=== PATIENT | male | born 1945 | race Caucasian/White ===

== ENCOUNTER 2016-09-16 07:15 | Outpatient (CLI) | payer MEDICARE, OTHER | END 2016-09-16 07:16 | disposition home or self-care (01) | DX: I50.9 Heart failure, unspecified (principal) ==

== ENCOUNTER 2016-11-01 13:16 | Outpatient (CLI) | payer MEDICARE, OTHER | END 2016-11-01 13:17 | disposition home or self-care (01) | DX: G47.33 Obstructive sleep apnea (adult) (pediatric) (principal) | CPT/HCPCS: 99214; G0463 ==

== ENCOUNTER 2016-12-09 07:16 | Outpatient (CLI) | payer MEDICARE, OTHER ==
[2016-12-09 13:43] LABS: BASOPHILS # (AUTO) 0.1 10^3/uL (0.0-0.1); BASOPHILS % (AUTO) 0.7 %; EOSINOPHILS # (AUTO) 0.1 10^3/uL (0.0-0.7); HCT - HEMATOCRIT 41.2 % (42.0-52.0); HGB - HEMOGLOBIN 13.9 g/dL (14.0-18.0); LYMPHOCYTES # (AUTO) 1.6 10^3/uL (1.5-3.5); LYMPHOCYTES % (AUTO) 20.2 %; MEAN CORPUSCULAR HEMOGLOBIN 32.1 pg (27.0-31.0); MEAN CORPUSCULAR HGB CONC 33.7 g/dL (32.0-36.0); MEAN CORPUSCULAR VOLUME 95.3 fL (80.0-94.0); MEAN PLATELET VOLUME 11.9 fL (7.4-11.4); MONOCYTES # (AUTO) 0.5 10^3/uL (0.0-1.0); MONOCYTES % (AUTO) 5.9 %; NEUTROPHILS # (AUTO) 5.9 10^3/uL (1.5-6.6); NEUTROPHILS % (AUTO) 72.2 %; RED BLOOD COUNT 4.32 10^6/uL (4.70-6.10); RED CELL DISTRIBUTION WIDTH 15.8 % (12.0-15.0); UNCORRECTED WHITE BLOOD COUNT 8.1 x10^3/uL; WHITE BLOOD COUNT 8.1 x10^3/uL (4.8-10.8)
[2016-12-09 14:06] LABS: CHOL/HDL RATIO 3.3 (<5.0); CHOLESTEROL 92 mg/dL; HDL CHOLESTEROL 28 mg/dL; LDL/HDL RATIO 1.8 (<3.6); TRIGLYCERIDES 66 mg/dL; VLDL CHOLESTEROL 13 mg/dL
[2016-12-09 14:19] LABS: HEMOGLOBIN A1C 0.65 g/dL
== END 2016-12-09 07:17 | disposition home or self-care (01) ==
LOC: LAB.WCP 07:16
PROVIDERS: ATTEND Family Medicine
DX: I50.9 Heart failure, unspecified (principal); E11.9 Type 2 diabetes mellitus without complications; Z12.5 Encounter for screening for malignant neoplasm of prostate; N18.9 Chronic kidney disease, unspecified; I48.91 Unspecified atrial fibrillation; I12.9 Hypertensive chronic kidney disease with stage 1 through stage 4 chronic kidney disease, or unspecified chronic kidney disease; E78.5 Hyperlipidemia, unspecified
CPT/HCPCS: 36415; 80061; 82043; 83036; 84443; 85025; G0103; 84153

== ENCOUNTER 2016-12-17 14:49 | Outpatient (CLI) | payer MEDICARE, OTHER ==
--- NOTE | 2016-12-19 08:20 | Ultrasound Report ---
BILATERAL LOWER EXTREMITY ARTERIAL DUPLEX: 12/17/2016 CLINICAL INDICATION: Peripheral vascular disease, claudication. TECHNIQUE: Real-time sonographic vascular imaging was performed by the pinsetter mechanic automatic through the lower extremities utilizing both color-flow and Doppler spectral analysis. Multiple sales development representative static images were saved for review. RIGHT SIDE SITE PSV WAVEFORM STEN NATALIE -- -- -- MAO -- -- -- FIDENCIO -- -- -- LITTLE -- -- -- EIA -- -- -- NUCLEAR RADIOLOGIST 86 Tri -- PSFA 75 Tri -- MSFA 75 Tri -- DSFA 58 Tri -- PFA 59 Tri -- POP 40 Tri -- JANNETH 51 Tri -- HORSE BREEDER 82 Tri -- PER 67 Tri -- DPA 45 Tri -- LEFT SIDE SITE PSV WAVEFORM STEN LITTLE -- -- -- EIA -- -- -- NUCLEAR RADIOLOGIST 78 Tri -- PSFA 63 Tri -- MSFA 69 Tri -- DSFA 42 Tri -- PFA 49 Tri -- POP 41 Tri -- JANNETH 62 Tri -- HORSE BREEDER 87 Tri -- PER 73 Tri -- DPA 62 Tri -- FINDINGS: RIGHT LEG: Waveforms are diffusely triphasic. There is no evidence of a focal hemodynamically significant stenosis. LEFT LEG: Waveforms are diffusely triphasic. There is no evidence of a focal hemodynamically significant stenosis. IMPRESSION: NORMAL BILATERAL LOWER EXTREMITY ARTERIAL DUPLEX. MTDD
== END 2016-12-17 14:50 | disposition home or self-care (01) ==
LOC: DI 14:49
PROVIDERS: ATTEND Family Medicine
DX: I73.9 Peripheral vascular disease, unspecified (principal)
CPT/HCPCS: 93925

== ENCOUNTER 2017-01-31 12:19 | Outpatient (CLI) | payer MEDICARE, OTHER ==
--- NOTE | 2017-01-31 13:14 | XRAY Report ---
TWO-VIEW CHEST: 01/31/2017 CLINICAL INDICATION: Pneumonia, right lower lobe rhonchi, fevers. COMPARISON: CT 11/23/2013. FINDINGS: Frontal and lateral views of the chest demonstrate a normal cardiac silhouette. There is a new right lower lobe infiltrate present, with trace right effusion. No pneumothorax. The left neema g is clear. IMPRESSION: NEW RIGHT LOWER LOBE INFILTRATE WITH TRACE RIGHT EFFUSION. :9 JOB #: [id number] EXT JOB #:[id number]
== END 2017-01-31 12:20 | disposition home or self-care (01) ==
LOC: DI 12:19
PROVIDERS: ATTEND Family Medicine
DX: J18.9 Pneumonia, unspecified organism (principal)
CPT/HCPCS: 71020

== ENCOUNTER → 2017-03-09 | Outpatient (CLI) | payer MEDICARE, OTHER ==
[2017-03-09 12:54] LABS: CALCIUM 9.5 mg/dL (8.5-10.3); CREATININE 1.3 mg/dL (0.6-1.2); POTASSIUM 5.2 mmol/L (3.5-5.0)
[2017-03-09 13:09] LABS: HEMOGLOBIN A1C 0.54 g/dL
== END ==
LOC: LAB.WCP 08:00
PROVIDERS: ATTEND Family Medicine
DX: E11.9 Type 2 diabetes mellitus without complications (principal); I50.9 Heart failure, unspecified; N18.9 Chronic kidney disease, unspecified; I48.91 Unspecified atrial fibrillation
CPT/HCPCS: 36415; 80048; 83036

== ENCOUNTER 2017-03-15 09:17 | Outpatient (CLI) | payer MEDICARE, OTHER | END 2017-03-15 09:18 | disposition home or self-care (01) | LOC: LAB.WCP 09:17 | PROVIDERS: ATTEND Family Medicine | DX: E87.5 Hyperkalemia (principal) | CPT/HCPCS: 36415; 84132 ==

== ENCOUNTER 2017-11-01 10:07 | Outpatient (CLI) | payer MEDICARE, OTHER | END 2017-11-01 10:08 | disposition home or self-care (01) | LOC: SC 10:07 | PROVIDERS: ATTEND Nurse Practitioner Family | DX: G47.33 Obstructive sleep apnea (adult) (pediatric) (principal) | CPT/HCPCS: 99214; G0463; 99212 ==

== ENCOUNTER 2018-01-24 07:18 | Outpatient (CLI) | payer MEDICARE, OTHER ==
[2018-01-24 13:22] LABS: ALBUMIN 3.7 g/dL (3.2-5.5); ALBUMIN/GLOBULIN RATIO 1.1 (1.0-2.2); ALKALINE PHOSPHATASE 58 IU/L (42-121); ALT ALANINE AMINOTRANSFERASE 28 IU/L (10-60); AST ASPARTATE AMINOTRANSFERASE 26 IU/L (10-42); BILIRUBIN,TOTAL 1.3 mg/dL (0.2-1.0); BUN - BLOOD UREA NITROGEN 24 mg/dL (6-20); CALCIUM 9.2 mg/dL (8.5-10.3); CARBON DIOXIDE - CO2 29 mmol/L (21-32); CHLORIDE 101 mmol/L (101-111); CHOLESTEROL 104 mg/dL; CREATININE 1.3 mg/dL (0.6-1.2); GFR - MDRD 54 (>89); GLUCOSE 106 mg/dL (70-100); HDL CHOLESTEROL 35 mg/dL; LDL CHOLESTEROL,CALCULATED 57 mg/dL; LDL/HDL RATIO 1.6 (<3.6); SODIUM 138 mmol/L (135-145); TOTAL PROTEIN 7.1 g/dL (6.7-8.2); VLDL CHOLESTEROL 12 mg/dL
[2018-01-24 13:32] LABS: HB2 TOTAL 15.2 g/dL; HEMOGLOBIN A1C 0.54 g/dL; HEMOGLOBIN A1C % 5.4 % (4.6-6.2)
== END 2018-01-24 07:19 | disposition home or self-care (01) ==
LOC: LAB.WCP 07:18
PROVIDERS: ATTEND Family Medicine
DX: Z79.899 Other long term (current) drug therapy (principal); E11.22 Type 2 diabetes mellitus with diabetic chronic kidney disease; I13.0 Hypertensive heart and chronic kidney disease with heart failure and stage 1 through stage 4 chronic kidney disease, or unspecified chronic kidney disease; N18.9 Chronic kidney disease, unspecified; I50.9 Heart failure, unspecified; I48.91 Unspecified atrial fibrillation; E78.9 Disorder of lipoprotein metabolism, unspecified
CPT/HCPCS: 36415; 80053; 80061; 82043; 83036; 83721

== ENCOUNTER 2018-03-16 13:23 | Emergency (ER) | payer MEDICARE, OTHER ==
--- NOTE | 2018-03-16 13:41 | ED Physician Documentation ---
PD HPI HEAD INJURY - Stated complaint Stated Complaint: GLF/FACE LAC - Chief complaint Chief Complaint: Trauma Hd/Nk - History obtained from History obtained from: Patient - History of Present Illness Mechanism of head injury: Fell (waling back down steeper incline of ground, fell forward and landed onto face and hands. Pain at nose, abrasions of face and brief epistaxis. Has feeling of FB at nose laceration. No dental injury. Did not have LOC. No headache nor confusion.) Timing - onset: Last night Location of injury: Front Associated symptoms: No: LOC, AMS, Nausea / vomiting, Neck pain, Paresthesias Symptoms worsen with: Palpation (of nose) Contributing factors: Anticoagulated (for chronic atrial fib). No: Intoxicated Similar symptoms before: Has not had sx before Recently seen: Not recently seen Review of Systems Constitutional: denies: Fever, Chills Eyes: denies: Loss of vision, Decreased vision, Photophobia Nose: reports: Congestion (chronic), Epistaxis Throat: denies: Dental pain / toothache, Oral lesions / sores Cardiac: denies: Chest pain / pressure, Palpitations Respiratory: denies: Dyspnea, Cough GI: denies: Abdominal Pain, Nausea, Vomiting Musculoskeletal: denies: Neck pain, Back pain Neurologic: denies: Focal weakness, Numbness, Altered mental status, Headache, Head injury PD PAST MEDICAL HISTORY - Past Medical History Cardiovascular: Hypertension Respiratory: None Endocrine/Autoimmune: Type 2 diabetes GI: GERD : None HEENT: None Psych: Claustrophobia Musculoskeletal: Osteoarthritis, Gout Derm: None - Past Surgical History General: Colonoscopy, EGD HEENT: Cataracts Derm: Other - Present Medications Home Medications: Ambulatory Orders Medication Instructions Recorded Confirmed Allopurinol [Zyloprim] 300 mg PO DAILY 05/29/13 05/29/13 Aspirin 81 mg PO 05/29/13 05/29/13 Atenolol 50 mg PO QDAC 05/29/13 05/29/13 Felodipine [Felodipine ER] 10 mg PO 05/29/13 05/29/13 Flaxseed Oil [Flax Oil] 1,000 mg PO 05/29/13 05/29/13 Lisinopril 40 mg PO 05/29/13 05/29/13 Metformin HCl [Fortamet] 500 mg PO DAILY 05/29/13 05/29/13 Multivitamin [Multivitamins] 1 ORAL DAILY 05/29/13 05/29/13 [place]-3 Fatty Acids [Fish Oil] 300 mg PO 05/29/13 05/29/13 Famotidine [Pepcid] 20 mg PO ONCE 09/17/13 09/17/13 Simvastatin [Zocor] 40 mg PO DAILY 09/17/13 09/17/13 - Allergies Allergies/Adverse Reactions: Allergies Allergy/AdvReac Type Severity Reaction Status Date / Time amoxicillin [Amoxicillin] Allergy Intermediate Nausea Verified 09/18/13 07:33 acetaminophen [From Vicodin] AdvReac Mild Nausea Verified 05/30/13 08:53 hydrocodone bitartrate * AdvReac Mild Nausea Verified 05/30/13 08:54 [From Vicodin] PD ED PE NORMAL - Vitals Vital signs reviewed: Yes - General General: Alert and oriented X 3, No acute distress, Well developed/nourished - HEENT HEENT: PERRL, EOMI, Pharynx benign, Dentition benign, Other (laceration on bridge of nose. dried blood in nares. No septal hematoma. There is small gravel piece in nose laceration, removed with forceps. Abrasions of forehead, upper lip , cheek, chin. ) - Neck Neck: Supple, no meningeal sign, No adenopathy - Cardiac Cardiac: RRR, No murmur - Respiratory Respiratory: Clear bilaterally - Abdomen Abdomen: Soft, Non tender - Back Back: No CVA TTP - Derm Derm: Normal color, Warm and dry, No rash - Extremities Extremities: No deformity, No tenderness to palpate, Normal ROM s pain, No edema , No calf tenderness / cord - Neuro Neuro: Alert and oriented X 3, No motor deficit, Normal speech Eye Opening: Spontaneous Motor: Obeys Commands Verbal: Oriented GCS Score: 15 Results - Vitals Vitals: Vital Signs - 24 hr 03/16/18 03/16/18 03/16/18 13:32 14:30 15:23 Temperature 36.3 C L 36.6 C Heart Rate 77 65 79 Respiratory 20 14 18 Rate Blood Pressure 111/73 142/64 H 138/85 H O2 Saturation 97 99 98 Oxygen O2 Source Room air - Rads (name of study) head CT Radiology: Prelim report reviewed (no ICH) facial CT Radiology: Prelim report reviewed (nasal fracture, depressed slightly. ) Procedures - Laceration (location) bridge of nose Length in cm: 1 Wound type: Linear, Into subcut fat, Contaminated (with single piece of gravel rock 1/2 cm size) Anesthesia: LET, Lidocaine 1% Wound Preparation: Irrigated copiously NS, FB identified, FB removed Skin layer closure: Nylon, Interrupted, Size #-0 - enter number (5), Sutures - enter # (5) Other: Patient tolerated well, No complications, Dressing applied, Tetanus UTD Complexity: Simple PD MEDICAL DECISION MAKING - ED course Complexity details: reviewed results, considered differential, d/w patient - Sepsis Event Vital Signs: Vital Signs - 24 hr 03/16/18 03/16/18 03/16/18 13:32 14:30 15:23 Temperature 36.3 C L 36.6 C Heart Rate 77 65 79 Respiratory 20 14 18 Rate Blood Pressure 111/73 142/64 H 138/85 H O2 Saturation 97 99 98 Oxygen O2 Source Room air Departure - Departure Disposition: 01 Home, Self Care Clinical Impression: Anticoagulant long-term use Laceration of nose Qualifiers: Encounter type: initial encounter Qualified Code(s): S01.21XA - Laceration without foreign body of nose, initial encounter Facial abrasion Qualifiers: Encounter type: initial encounter Qualified Code(s): S00.81XA - Abrasion of other part of head, initial encounter Nasal fracture Qualifiers: Encounter type: initial encounter Fracture type: closed Qualified Code(s): S02.2XXA - Fracture of nasal bones, initial encounter for closed fracture Condition: Stable Record reviewed to determine appropriate education?: Yes Instructions: ED Fx Nasal Conf W X Ray, ED Laceration Facial Sutr Tape Follow-Up: Bhavik Hernandez MD [Primary Care Provider] - Comments: It is okay to wash and shower. Clean off the wound twice a day with soap and water, or peroxide and water. Apply some antibiotic ointment to it to keep it moist. Also to watch for signs of infection such as purulence, redness or increasing pain. Return to your primary care or the ER at the specified time for suture removal. Suture removal 7 or 8 days. Tylenol if needed for pains. See how your nose looks and how your breathing is after a week or so when the swelling goes down. Follow-up with your primary care or ENT if problems related to the broken nose. It does not look significantly displaced on imaging and should heal up okay without repair per se. Discharge Date/Time: 03/16/18 15:26
[2018-03-16] MEDS ORDERED: LIDOCAINE-EPINEPH-TETRACAINE 3 ML SYRINGE TOP STA (13:55)
[2018-03-16] MEDS ORDERED: ACETAMINOPHEN 325 MG TABLET PO STA (13:56)
--- NOTE | 2018-03-16 14:23 | CT Report ---
Procedure Date: 03/16/2018 Accession Number: [id number] / [id number] Procedure: CT - Head W/O CPT Code: FULL RESULT: EXAM: CT HEAD EXAM DATE: 03/16/2018 02:10 PM. CLINICAL HISTORY: Fell last night, struck head and face; on Xarelto. Pain. COMPARISON: None. TECHNIQUE: Multiaxial CT images were obtained from the foramen magnum to the vertex. Reformats: Coronal. IV contrast: None. In accordance with CT protocol optimization, one or more of the following dose reduction techniques were utilized for this exam: automated exposure control, adjustment of mA and/or KV based on patient size, or use of iterative reconstructive technique. FINDINGS: Parenchyma: No intraparenchymal hemorrhage. No evidence of mass, midline shift, or CT findings of acute infarction. Howell-white differentiation is distinct. Diffuse chronic microangiopathic white matter changes are evident. Extraaxial Spaces: Normal for age. No subdural or epidural collections identified. Ventricles: The ventricles and cortical sulci are enlarged, consistent with age-related tissue loss. Sinuses and orbits: Imaged paranasal sinuses, orbits, and mastoids show no significant abnormality. Bones: No evidence of fracture or calvarial defect. Other: Mild right forehead edema. IMPRESSION: Generalized age-related cortical atrophic changes without evidence of acute intracranial abnormality. RADIA
--- NOTE | 2018-03-16 14:31 | CT Report ---
Procedure Date: 03/16/2018 Accession Number: [id number] / [id number] Procedure: CT - Facial Bones W/O CPT Code: FULL RESULT: EXAM: CT MAXILLOFACIAL WITHOUT CONTRAST EXAM DATE: 03/16/2018 02:10 PM. CLINICAL HISTORY: Fell last night; struck face/nose. Pain. On Xarelto. COMPARISONS: None. TECHNIQUE: Thin-section axial images were acquired of the face without contrast. Post-processing: Coronal and sagittal reformats. Other: None. In accordance with CT protocol optimization, one or more of the following dose reduction techniques were utilized for this exam: automated exposure control, adjustment of mA and/or KV based on patient size, or use of iterative reconstructive technique. FINDINGS: Soft Tissue: Mild uniform edema right forehead. Mild edema over the nose. Orbits: Symmetric and unremarkable. Bones: Bilateral nasal tip fractures, slightly angulated towards the left. Both styloid processes are very large in caliber and very long, right greater than left. There is central fragmentation or articulation left styloid process. There are two areas of fragmentation and/or articulations in the right styloid process. No adjacent edema. Temporomandibular Joints: The temporomandibular joints are symmetric and normally located. Sinuses: Normal. No mucosal thickening or fluid levels. Other: None. IMPRESSION: 1. Bilateral slightly displaced/depressed nasal tip fractures. 2. 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 Fragmentation and/or articulations involving such. Appearance favors remote injury rather than acute. Correlate with any posttraumatic symptoms in this region. RADIA
[2018-03-16 15:24] VITALS: BP 138/85
== END 2018-03-16 15:26 | disposition home or self-care (01) ==
LOC: ED 13:23
DX: S01.21XA Laceration without foreign body of nose, initial encounter (principal); S02.2XXA Fracture of nasal bones, initial encounter for closed fracture; W18.30XA Fall on same level, unspecified, initial encounter; I10 Essential (primary) hypertension; E11.9 Type 2 diabetes mellitus without complications; Z79.84 Long term (current) use of oral hypoglycemic drugs; Z79.01 Long term (current) use of anticoagulants; Z79.82 Long term (current) use of aspirin
CPT/HCPCS: 12011; 70450; 70486; 99282; 99284; A9270

== ENCOUNTER 2018-09-06 08:01 | Outpatient (CLI) | payer MEDICARE, OTHER ==
[2018-09-06 12:07] LABS: BASOPHILS # (AUTO) 0.1 10^3/uL (0.0-0.1); BASOPHILS % (AUTO) 0.6 %; EOSINOPHILS # (AUTO) 0.1 10^3/uL (0.0-0.7); EOSINOPHILS % (AUTO) 1.1 %; HGB - HEMOGLOBIN 13.7 g/dL (14.0-18.0); LYMPHOCYTES # (AUTO) 1.3 10^3/uL (1.5-3.5); LYMPHOCYTES % (AUTO) 15.5 %; MEAN CORPUSCULAR HEMOGLOBIN 32.2 pg (27.0-31.0); MEAN CORPUSCULAR HGB CONC 33.4 g/dL (32.0-36.0); MEAN CORPUSCULAR VOLUME 96.5 fL (80.0-94.0); MEAN PLATELET VOLUME 11.5 fL (7.4-11.4); MONOCYTES # (AUTO) 0.6 10^3/uL (0.0-1.0); MONOCYTES % (AUTO) 7.5 %; NEUTROPHILS # (AUTO) 6.1 10^3/uL (1.5-6.6); NEUTROPHILS % (AUTO) 75.3 %; PLT - PLATELET COUNT 140 10^3/uL (130-450); RED BLOOD COUNT 4.25 10^6/uL (4.70-6.10); RED CELL DISTRIBUTION WIDTH 15.7 % (12.0-15.0); WHITE BLOOD COUNT 8.1 x10^3/uL (4.8-10.8)
[2018-09-06 12:33] LABS: ALBUMIN 3.7 g/dL (3.2-5.5); ALBUMIN/GLOBULIN RATIO 1.1 (1.0-2.2); ALKALINE PHOSPHATASE 61 IU/L (42-121); ALT ALANINE AMINOTRANSFERASE 30 IU/L (10-60); AST ASPARTATE AMINOTRANSFERASE 28 IU/L (10-42); BILIRUBIN,TOTAL 1.1 mg/dL (0.2-1.0); BUN - BLOOD UREA NITROGEN 32 mg/dL (6-20); CALCIUM 8.9 mg/dL (8.5-10.3); CARBON DIOXIDE - CO2 29 mmol/L (21-32); CHLORIDE 103 mmol/L (101-111); CHOL/HDL RATIO 3.2 (<5.0); CHOLESTEROL 114 mg/dL; CREATININE 1.3 mg/dL (0.6-1.2); GFR - MDRD 54 (>89); GLUCOSE 113 mg/dL (70-100); HDL CHOLESTEROL 36 mg/dL; LDL CHOLESTEROL,CALCULATED 66 mg/dL; LDL/HDL RATIO 1.8 (<3.6); SODIUM 141 mmol/L (135-145); VLDL CHOLESTEROL 12 mg/dL
[2018-09-06 12:48] LABS: HB2 TOTAL 14.5 g/dL; HEMOGLOBIN A1C 0.52 g/dL; HEMOGLOBIN A1C % 5.4 % (4.6-6.2)
== END 2018-09-06 08:02 | disposition home or self-care (01) ==
LOC: LAB.WCP 08:01
PROVIDERS: ATTEND Family Medicine
DX: E11.22 Type 2 diabetes mellitus with diabetic chronic kidney disease (principal); I12.9 Hypertensive chronic kidney disease with stage 1 through stage 4 chronic kidney disease, or unspecified chronic kidney disease; N18.9 Chronic kidney disease, unspecified; E78.5 Hyperlipidemia, unspecified; I48.91 Unspecified atrial fibrillation
CPT/HCPCS: 36415; 80053; 80061; 83036; 83721; 84443; 85025

== ENCOUNTER 2018-10-06 09:45 | Outpatient (CLI) | payer MEDICARE, OTHER ==
--- NOTE | 2018-10-06 11:24 | XRAY Report ---
Reason: WRIST PAIN Procedure Date: 10/06/2018 Accession Number: [id number] / [id number] Procedure: WCP - Wrist 3 View RT CPT Code: FULL RESULT: EXAM: RIGHT WRIST RADIOGRAPHY EXAM DATE: 10/06/2018 10:10 AM. CLINICAL HISTORY: Wrist pain. COMPARISON: None. TECHNIQUE: 3 views. FINDINGS: Bones: The bones are qualitatively osteopenic; this limits evaluation for underlying fractures or masses. Within these limitations no definite fracture is identified. There is a sclerotic line in the distal radius coursing from the lateral aspect towards the articular surface. Joints: Some degenerative changes are seen at the first carpometacarpal interface. No definite subluxation. Soft Tissues: Mild soft tissue swelling near the distal radius. IMPRESSION: Osteopenia and degenerative changes with no definite fracture or dislocation identified. Sclerotic line in the distal radius near an area of focal soft tissue swelling. If there is focal tenderness in this area, a chronic or subacute nondisplaced fracture of the distal radius is possible. RADIA
== END 2018-10-06 09:46 | disposition home or self-care (01) ==
LOC: DI.WCP 09:45
PROVIDERS: ATTEND Family Medicine
DX: M18.11 Unilateral primary osteoarthritis of first carpometacarpal joint, right hand (principal); M85.88 Other specified disorders of bone density and structure, other site

== ENCOUNTER 2019-01-15 08:00 | Outpatient (CLI) | payer MEDICARE, OTHER | END 2019-01-15 23:59 | LOC: LAB.R 08:00 | PROVIDERS: ATTEND Family Medicine | DX: L03.115 Cellulitis of right lower limb (principal) | CPT/HCPCS: 87070; 87075; 87077; 87184; 87205 ==

== ENCOUNTER 2019-01-30 08:16 | Outpatient (CLI) | payer MEDICARE, OTHER | END 2019-01-30 08:17 | disposition home or self-care (01) | LOC: SC 08:16 | PROVIDERS: ATTEND Nurse Practitioner Family | DX: G47.33 Obstructive sleep apnea (adult) (pediatric) (principal); I95.9 Hypotension, unspecified | CPT/HCPCS: 99214; G0463; 99212 ==

== ENCOUNTER 2019-02-28 07:12 | Outpatient (CLI) | payer MEDICARE, OTHER ==
[2019-02-28 13:19] LABS: CALCIUM 9.4 mg/dL (8.5-10.3); CREATININE 1.5 mg/dL (0.6-1.2)
== END 2019-02-28 07:13 | disposition home or self-care (01) ==
LOC: LAB.WCP 07:12
PROVIDERS: ATTEND Physician Assistant Medical
DX: E87.5 Hyperkalemia (principal)
CPT/HCPCS: 36415; 80048

== ENCOUNTER 2020-02-13 08:37 | Outpatient (CLI) | payer MEDICARE, OTHER ==
[2020-02-13 09:32] VITALS: BP 148/80
--- NOTE | 2020-02-13 09:32 | SLEEP CARE CONSULTATION ---
Information from patient questionnaire entered by Rosalie Gaspar. I have reviewed and concur with the information entered by Rosalie Gaspar. This document represents the service I personally performed and the decisions made by me, Erin Del Angel, RN, MSN, HEAVY EQUIPMENT TECHNICIAN. History of Present Illness Service Date and Time: 02/13/2020 0837 Previous diagnosis: Severe, Obstructive Sleep Apnea-Hypopnea Syndrome AHI: 31.4 (in 2013) Reason for follow up: annual (last seen 2019) Equipment type: CPAP Equipment obtained from: [employer] (getting supplies as needed with this transfer) Mask style: Full face Backup mask available: Yes (old mask as well as one with travel CPAP) Last cushion change: 2 weeks ago Prior sleep studies: Yes Year and Where: 2013 - [facility] Type of Sleep Study: Polysomnography CPAP Compliance Data - Data Reviewed with Patient Average duration of nightly device use: 7.95 Compliance rate %: 100 (180 days) Current pressure setting (cmH2O): 12 Humidity settin Heated hose settin Average residual AHI: 2.5 Average large leak: 1 min 11 sec Subjective Patient concerns: reports: mask discomfort (occasional redness on bridge of nose), dry mouth, nose, throat (occasional mild dry mouth 2 times a week. ). denies: aerophagia, air blowing in eyes, mask leak noise, condensation in mask/hose (but perspires around mask with warmer weather. He has a fan in room. Skin dryness resolves with use of lotion. ), nasal congestion, epistaxis Observed to snore while using device: No Current pressure setting perceived as: comfortable On therapy, patient: reports: sleeping better, awakening more refreshed, being more awake and alert during the day, more rested overall. denies: drowsiness while driving Initial [place] Sleepiness Scale score: 1 (in 2013) Allergies and Home Medications Known drug allergies: Yes (see list) Home medication list reviewed: No (lisinopril divided to 20 bid and furosemide is now every other day ) Review of Systems Review of systems same as previous: No (some changes in kidney function and follow up planned) Physical Exam Blood Pressure: 148/80 Cuff size: long Heart Rate: 84 O2 Saturation: 96 Height: 5 ft 11 in Weight: 235 lb 9.6 oz Body Mass Index: 32.8 BMI Classification: Obese Impression and Plan 1. Obstructive Sleep Apnea-Hypopnea Syndrome, severe, with good treatment compliance and good apnea control. On CPAP therapy, the patient has better sleep quality and is more rested overall. If redness on bridge of nose persists than he is advised to protect the bridge of nose with bandaid and decide if mask refitting needed. He is already cleaning mask daily to reduce mask leaks when sleeps on his side. Additionally, mask leaks predominately from when patient sleeps on their side can be reduced by using a CPAP pillow which he uses and has reduced mask leaks but not completely. Oral dryness can be reduced by adjusting humidity setting higher. Patient advised that chronic oral dryness can affect dental health and advised to follow up with dentist. He has tried oral products from dentist but reduced some. He takes a drink of water instead using the oral dryness product. Patient has gained weight. Currently patients BMI is 32.8 obesity class . Obesity increases the risk of apnea, CPAP pressure requirements and overall health risks especially cardiovascular and diabetes. Thus patient is advised to lose weight. Weight loss can be done with reducing portion size, reducing refined foods and balancing content with vegetables, fruit and protein. In addition tracking food intake will allow awareness of how to modify diet to achieve weight loss goals. Also eating more slowly will allow more awareness of food intake and enjoyment of food while assisting patient to modify intake at each meal. A diet consultation can be helpful in achieving optimal weight loss goals. The BMI chart was reviewed. The patient would like to reduce 10-20 pounds bringing their BMI down to about . Patient encouraged to discuss their weight loss goals with their PCP and consider a referral to a coach. The patient's CPAP pressure range should accommodate some weight loss. Symptoms to report for additional pressure adjustment discussed. Patient's apnea severity and rationale for treatment to reduce apnea, improve sleep quality and reduce cardiovascular and cerebrovascular events was reviewed. I also reviewed the benefit of consistent device use of CPAP for hypertension, cardiac disease, arrhythmia, diabetes. Since patient has more severe apnea in supine position, patient advised to avoid supine sleep with pillow positioning if unable to use CPAP while ill or if without electricity as well as raise his head of bed 30-40 degrees to reduce apnea risk. * Continue CPAP pressure at 12 cmH2O * Implement methods to reduce mask irritation, oral dryness. * Notify me if snoring with mask or feeling that the pressure is too much or too little * Attempt to lose weight * Call this office if any problems using CPAP * Return for follow up in 1 year , or sooner if concerns arise Visit Type: In Office Time Spent with Patient (minutes): 30 Provider Statement: I spent 100% of the Face to Face Visit with the patient with greater than 50% spent counseling the patient and coordination of care.
== END 2020-02-13 08:38 | disposition home or self-care (01) ==
LOC: SC 08:37
PROVIDERS: ATTEND Nurse Practitioner Family
DX: G47.33 Obstructive sleep apnea (adult) (pediatric) (principal); E66.9 Obesity, unspecified; Z68.32 Body mass index [BMI] 32.0-32.9, adult
CPT/HCPCS: 99214; G0463; 99212

== ENCOUNTER 2020-06-06 06:25 | Day surgery (SDC) | payer MEDICARE, OTHER ==
[2020-06-06] MEDS ORDERED: LACTATED RINGERS 1,000 ML IV ONE ×2 (07:10→08:10)
[2020-06-06] MEDS ORDERED: MIDAZOLAM 2 MG/2 ML VIAL IVP ONE (08:10)
[2020-06-06] MEDS ORDERED: fentaNYL 250 MCG/5 ML VIAL IVP ONE (08:10)
[2020-06-06 08:21] VITALS: BP 119/65
== END 2020-06-06 06:26 | disposition home or self-care (01) ==
LOC: SDS 06:25
PROVIDERS: ATTEND Surgery
PROC: 0DJD8ZZ Inspection of Lower Intestinal Tract, Via Natural or Artificial Opening Endoscopic (ICD-10-PCS; principal; 2020-06-06 07:30)
DX: Z12.11 Encounter for screening for malignant neoplasm of colon (principal); Z86.010 Personal history of colon polyps; K57.30 Diverticulosis of large intestine without perforation or abscess without bleeding; I13.0 Hypertensive heart and chronic kidney disease with heart failure and stage 1 through stage 4 chronic kidney disease, or unspecified chronic kidney disease; I50.9 Heart failure, unspecified; N18.9 Chronic kidney disease, unspecified; I48.91 Unspecified atrial fibrillation; J44.9 Chronic obstructive pulmonary disease, unspecified; I73.9 Peripheral vascular disease, unspecified; N40.0 Benign prostatic hyperplasia without lower urinary tract symptoms; G47.30 Sleep apnea, unspecified; M51.36 Other intervertebral disc degeneration, lumbar region; Z79.51 Long term (current) use of inhaled steroids; Z79.899 Other long term (current) drug therapy
CPT/HCPCS: G0105; J3010; J7120

== ENCOUNTER 2021-01-01 07:27 | Emergency (ER) | payer MEDICARE, OTHER ==
[2021-01-01 07:44] VITALS: BP 157/86
[2021-01-01] MEDS ORDERED: BACITRACIN ZINC OINT 1 PACKET TOP STA (07:49)
[2021-01-01] MEDS ORDERED: TRANEXAMIC ACID 1,000 MG/10 ML VIAL NAS STA (07:49)
[2021-01-01] MEDS ORDERED: TETANUS/DIPHTHERIA/PERTUSSIS 0.5 ML SYRINGE IM ONE (07:53)
--- NOTE | 2021-01-01 09:25 | ED Physician Documentation ---
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 It has been bleeding since that time and was bleeding steadily this morning. He is on xarelto Review of Systems Skin: reports: Other (avulsion) PD PAST MEDICAL HISTORY - Past Medical History Past Medical History: Yes Cardiovascular: Hypertension, Atrial fibrillation Respiratory: Asthma, COPD, Sleep apnea, CPAP use Endocrine/Autoimmune: Type 2 diabetes GI: GERD : None HEENT: None Psych: Claustrophobia Musculoskeletal: Osteoarthritis, Gout Derm: None - Past Surgical History Past Surgical History: Yes General: Colonoscopy, EGD HEENT: Cataracts Derm: Other - Present Medications Home Medications: Ambulatory Orders Medication Instructions Recorded Confirmed [place]-3 Fatty Acids [Fish Oil] 300 mg PO DAILY 05/29/13 01/01/21 allopurinoL [Zyloprim] 300 mg PO DAILY 05/29/13 01/01/21 lisinopriL [Lisinopril] 20 mg PO BID 05/29/13 01/01/21 Fluticasone/Salmeterol [Advair 1 each IH DAILY 06/05/20 01/01/21 100-50 Diskus] Omeprazole 40 mg PO DAILY 06/05/20 01/01/21 Rivaroxaban [Xarelto] 15 mg PO DAILY 06/05/20 01/01/21 Tiotropium [place] [Spiriva 4 gm IH BID 06/05/20 01/01/21 Respimat] Metoprolol Succinate 1 tab DAILY 06/06/20 01/01/21 cloNIDine [Catapres] 2 tab DAILY 06/06/20 01/01/21 dilTIAZem HCL [Diltiazem 24Hr ER 1 tab DAILY 06/06/20 01/01/21 (Xr)] Atorvastatin [Lipitor] 1 tab DAILY 01/01/21 01/01/21 - Allergies Allergies/Adverse Reactions: Allergies Allergy/AdvReac Type Severity Reaction Status Date / Time amoxicillin [Amoxicillin] Allergy Intermediate Nausea Verified 01/01/21 07:45 acetaminophen [From Vicodin] AdvReac Mild Nausea Verified 01/01/21 07:45 hydrocodone bitartrate * AdvReac Mild Nausea Verified 01/01/21 07:45 [From Vicodin] - Social History Does the pt smoke?: No Smoking Status: Never smoker Does the pt drink ETOH?: Yes Does the pt have substance abuse?: No - Immunizations Immunizations are current?: Yes - POLST Patient has POLST: No PD ED PE NORMAL - Vitals Vital signs reviewed: Yes - General General: Alert and oriented X 3, No acute distress, Well developed/nourished - HEENT HEENT: Atraumatic, PERRL, EOMI - Derm Derm: Normal color, Warm and dry, Other (1 cm avulsion to right anterior leg with small amount of blood, stopping after direct pressure and gauze soaked with TXA.) - Extremities Extremities: No deformity, Other (Ambulatory without difficulty. 2+ R DP pulse. normal sensation and movement s/p KASHIF wrap) Results - Vitals Vitals: Vital Signs - 24 hr 01/01/21 07:35 Temperature 36.2 C L Heart Rate 97 Respiratory 16 Rate Blood Pressure 157/86 H O2 Saturation 100 Oxygen O2 Source Room air PD MEDICAL DECISION MAKING - ED course ED course: 75-year-old man presented with bleeding avulsion that resolved after direct pressure, TXA soaked gauze, and Kashif wrap application.Return precautions given. He will follow up with his primary doctor. Departure - Departure Disposition: 01 Home, Self Care Clinical Impression: Avulsion, skin Condition: Good Instructions: ED Wound Care Comments: You are seen in the emergency department for avulsed skin that would not stop bleeding. We put tranexamic acid directly on the wound and direct pressure with a Kashif wrap. Return to the emergency department if it starts bleeding again and does not resolve after 15 minutes of direct steady pressure. Follow-up with your primary doctor.Monitor for signs of infection.
== END 2021-01-01 09:32 | disposition home or self-care (01) ==
LOC: ED 07:27
DX: S81.801A Unspecified open wound, right lower leg, initial encounter (principal); W22.8XXA Striking against or struck by other objects, initial encounter; I48.91 Unspecified atrial fibrillation; Z79.01 Long term (current) use of anticoagulants; E11.9 Type 2 diabetes mellitus without complications; Z23 Encounter for immunization
CPT/HCPCS: 90471; 90715; 99281; 99283; A9270

== ENCOUNTER 2021-02-03 13:46 | Outpatient (CLI) | payer MEDICARE, OTHER ==
--- NOTE | 2021-02-03 15:22 | XRAY Report ---
PROCEDURE: Chest 2 View X-Ray INDICATIONS: COPD TECHNIQUE: 2 view(s) of the chest. COMPARISON: None. FINDINGS: Surgical changes and devices: None. Lungs and pleura: No pleural effusions or pneumothorax. Lungs are mildly edematous. Mediastinum: Mediastinal contours are normal. Heart size is globally enlarged, to a mild degree. Bones and chest wall: No suspicious bony abnormalities. Soft tissues appear unremarkable. IMPRESSION: Mild chronic CHF pattern, no pneumonia seen. Reviewed by: Isaac Aguilar MD on 02/03/2021 3:20 PM PDT Approved by: Isaac Aguilar MD on 02/03/2021 3:20 PM PDT Station ID: [id number]
== END 2021-02-03 13:47 | disposition home or self-care (01) ==
LOC: DI.N 13:46
PROVIDERS: ATTEND Physician Assistant
DX: I50.9 Heart failure, unspecified (principal); J44.9 Chronic obstructive pulmonary disease, unspecified

== ENCOUNTER 2021-02-11 08:02 | Outpatient (CLI) | payer MEDICARE, OTHER ==
--- NOTE | 2021-02-11 09:04 | SLEEP CARE CONSULTATION ---
Information from patient questionnaire entered by Rosalie Gaspar. I have reviewed and concur with the information entered by Rosalie Gaspar. This document represents the service I personally performed and the decisions made by , Radha Andrade ARNP. History of Present Illness Service Date and Time: 02/11/2021 0802 Previous diagnosis: Severe, Obstructive Sleep Apnea-Hypopnea Syndrome AHI: 31.4 (in 2013) Reason for follow up: annual (last seen 01/2020) Equipment type: CPAP Equipment obtained from: [facility] (getting supplies as needed) Mask style: Full face Backup mask available: Yes (old mask) Last cushion change: 2 weeks ago Prior sleep studies: Yes Year and Where: 2013 - [facility] HPI additional information: MARIANN SINGER was diagnosed to have severe, AHI 31.4, obstructive sleep apnea-hypopnea syndrome and returned today for CPAP therapy annual follow-up. CPAP Compliance Data - Data Reviewed with Patient Average duration of nightly device use: 7 hr 58 min Compliance rate %: 96.1 (180 days) Current pressure setting (cmH2O): 12 Humidity settin Heated hose settin Average residual AHI: 1.1 Average large leak: 12 sec Subjective Missed days of use due to: reports: travel Patient concerns: denies: aerophagia, mask discomfort, air blowing in eyes, mask leak noise, condensation in mask/hose, nasal congestion, dry mouth, nose, throat, epistaxis, other Observed to snore while using device: No Current pressure setting perceived as: comfortable On therapy, patient: reports: sleeping better, awakening more refreshed, being more awake and alert during the day, more rested overall. denies: drowsiness while driving Initial Creole Sleepiness Scale score: 1 (in 2013) Current Creole Sleepiness Scale score: 5 Allergies and Home Medications Home medication list reviewed: Yes (stopped simvastatin; Atorvastatin started) Review of Systems Review of systems same as previous: Yes (no changes) Physical Exam Heart Rate: 93 O2 Saturation: 93 Height: 5 ft 11 in Weight: 227 lb Body Mass Index: 31.6 BMI Classification: Obese Impression and Plan 1. Obstructive Sleep Apnea-Hypopnea Syndrome, severe, with good treatment compliance and good apnea control. On CPAP therapy, the patient has better sleep quality and is more rested overall. Patient aware of the [employer] recall but has not yet registered his device. I encouraged him to still do this explained where he can find a link on the [employer] website. Patient is also eligible for an upgrade of his machine which was last set up in 2015. The patients CPAP is over 5 years old and of reasonable use. Thus, the CPAP will be updated. A DWO prescription will be made. Compliance guidelines for new device and follow up discussed. Patient voiced understanding and agreement with this plan of care. Patient's apnea severity and rationale for treatment to reduce apnea, improve sleep quality and reduce cardiovascular and cerebrovascular events was reviewed. I also reviewed the benefit of consistent device use of CPAP for hypertension, cardiac disease, arrhythmia, and diabetes. * Continue auto CPAP pressure at 12 cmH2O * Update machine * Notify me if snoring with mask or feeling that the pressure is too much or too little * Attempt to lose weight * Call this office if any problems using CPAP * Return for follow up one month after obtaining new device, or sooner if concerns arise Counseling Topics: Spare mask, Weight loss health impact Visit Type: In Office Time Spent with Patient (minutes): 20 Provider Statement: I spent 100% of the Face to Face Visit with the patient with greater than 50% spent counseling the patient and coordination of care.
== END 2021-02-11 08:03 | disposition home or self-care (01) ==
LOC: SC 08:02
PROVIDERS: ATTEND Nurse Practitioner Family
DX: G47.33 Obstructive sleep apnea (adult) (pediatric) (principal); E66.9 Obesity, unspecified; Z68.31 Body mass index [BMI] 31.0-31.9, adult
CPT/HCPCS: 99213; G0463; 99212

== ENCOUNTER 2021-02-12 10:17 | Outpatient (CLI) | payer MEDICARE, OTHER ==
--- NOTE | 2021-02-12 12:50 | XRAY Report ---
PROCEDURE: Lumbar Spine 2 View INDICATIONS: R LUMBAR RADICULOPATHY TECHNIQUE: 3 views of the lumbar spine were acquired. COMPARISON: None. FINDINGS: Bones: 5 [id number] vertebrae are present. There is mild grade 1 retrolisthesis of L3 on L4 and L4 on L5. Multilevel disc space narrowing and degenerative endplate changes are seen with prominent anterior osteophyte formation. Facet hypertrophy is seen throughout the lumbar spine. No vertebral blayne dy compression fractures. No suspicious bony lesions. Soft tissues: Overlying bowel gas pattern is normal. No suspicious soft tissue calcifications. Aor tic atherosclerotic calcifications are present. IMPRESSION: No acute osseous abnormality. Multilevel spondylosis. Reviewed by: Rocky Tariq MD on 02/12/2021 12:49 PM PDT Approved by: Rocky Tariq MD on 02/12/2021 12:49 PM PDT Station ID: [id number]
== END 2021-02-12 10:18 | disposition home or self-care (01) ==
LOC: DI.N 10:17
PROVIDERS: ATTEND Family Medicine
DX: M54.16 Radiculopathy, lumbar region (principal)

== ENCOUNTER 2021-05-22 08:29 | Outpatient (CLI) | payer MEDICARE, OTHER | END 2021-05-22 08:30 | disposition critical access hospital (66) | LOC: EMS 08:29 | DX: R40.4 Transient alteration of awareness (principal) | CPT/HCPCS: A0425; A0429 ==

== ENCOUNTER 2021-05-22 09:02 | Emergency (ER) | payer MEDICARE, OTHER ==
[2021-05-22 09:31] LABS: BASOPHILS # (AUTO) 0.1 10^3/uL (0.0-0.1); BASOPHILS % (AUTO) 0.5 %; EOSINOPHILS % (AUTO) 0.1 %; HCT - HEMATOCRIT 38.4 % (42.0-52.0); LYMPHOCYTES # (AUTO) 0.6 10^3/uL (1.5-3.5); LYMPHOCYTES % (AUTO) 4.7 %; MEAN CORPUSCULAR HEMOGLOBIN 30.7 pg (27.0-31.0); MEAN CORPUSCULAR HGB CONC 31.3 g/dL (32.0-36.0); MEAN CORPUSCULAR VOLUME 98.2 fL (80.0-94.0); MEAN PLATELET VOLUME 11.3 fL (7.4-11.4); MONOCYTES # (AUTO) 0.8 10^3/uL (0.0-1.0); MONOCYTES % (AUTO) 6.6 %; NEUTROPHILS # (AUTO) 10.8 10^3/uL (1.5-6.6); NEUTROPHILS % (AUTO) 87.5 %; PLT - PLATELET COUNT 223 10^3/uL (130-450); RED BLOOD COUNT 3.91 10^6/uL (4.70-6.10); RED CELL DISTRIBUTION WIDTH 14.7 % (12.0-15.0); WHITE BLOOD COUNT 12.4 x10^3/uL (4.8-10.8)
[2021-05-22] MEDS ORDERED: diltiaZEM INJ 5 MG/ML VIAL IVP STA ×2 (09:48→11:18)
[2021-05-22 09:51] LABS: ALBUMIN 3.4 g/dL (3.2-5.5); BILIRUBIN,TOTAL 1.7 mg/dL (0.2-1.0); CALCIUM 8.8 mg/dL (8.5-10.3); POTASSIUM 4.7 mmol/L (3.5-5.0); TOTAL PROTEIN 6.9 g/dL (6.7-8.2)
--- NOTE | 2021-05-22 09:51 | ED Physician Documentation ---
PD HPI SYNCOPE - Stated complaint Stated Complaint: ALOC - Chief complaint Chief Complaint: Neuro - History obtained from History obtained from: Patient, Family - History of Present Illness Witnessed: Witnessed Timing - onset: Today Duration: Seconds Preceding symptoms: Headache, Light headed Associated symptoms: Headache. No: Seizure Injury occurred: None Similar symptoms before: Has not had sx before Recently seen: Not recently seen - Additional information Additional information: 76-year-old male with a history of atrial fibrillation who is on Eliquis has had a near syncopal episode this morning while sitting at the breakfast table. He states he got for his usual morning routine felt normal and while sitting at his table he began to feel lightheaded.He has had URI last week and was examined by his physician. Patient feels that he has recovered from his viral URI Review of Systems Constitutional: denies: Fever Eyes: denies: Decreased vision Ears: denies: Ear pain Nose: reports: Rhinorrhea / runny nose, Congestion Throat: reports: Sore throat Cardiac: denies: Chest pain / pressure, Palpitations Respiratory: reports: Cough. denies: Dyspnea, Wheezing GI: denies: Abdominal Pain, Nausea, Vomiting, Constipation, Diarrhea : denies: Dysuria, Frequency Skin: denies: Rash Musculoskeletal: denies: Neck pain, Back pain, Extremity pain Neurologic: denies: Generalized weakness, Focal weakness, Numbness PD PAST MEDICAL HISTORY - Past Medical History Cardiovascular: Hypertension, Atrial fibrillation Respiratory: Asthma, COPD, Sleep apnea, CPAP use Endocrine/Autoimmune: Type 2 diabetes GI: GERD : None HEENT: None Psych: Claustrophobia Musculoskeletal: Osteoarthritis, Gout Derm: None - Past Surgical History Past Surgical History: Yes General: Colonoscopy, EGD HEENT: Cataracts Derm: Other - Present Medications Home Medications: Ambulatory Orders Medication Instructions Recorded Confirmed [place]-3 Fatty Acids [Fish Oil] 300 mg PO DAILY 05/29/13 01/01/21 allopurinoL [Zyloprim] 300 mg PO DAILY 05/29/13 01/01/21 lisinopriL [Lisinopril] 20 mg PO BID 05/29/13 01/01/21 Fluticasone/Salmeterol [Advair 1 each IH DAILY 06/05/20 01/01/21 100-50 Diskus] Omeprazole 40 mg PO DAILY 06/05/20 01/01/21 Rivaroxaban [Xarelto] 15 mg PO DAILY 06/05/20 01/01/21 Tiotropium [place] [Spiriva 4 gm IH BID 06/05/20 01/01/21 Respimat] Metoprolol Succinate 1 tab DAILY 06/06/20 01/01/21 cloNIDine [Catapres] 2 tab DAILY 06/06/20 01/01/21 dilTIAZem HCL [Diltiazem 24Hr ER 1 tab DAILY 06/06/20 01/01/21 (Xr)] Atorvastatin [Lipitor] 1 tab DAILY 01/01/21 01/01/21 - Allergies Allergies/Adverse Reactions: Allergies Allergy/AdvReac Type Severity Reaction Status Date / Time amoxicillin [Amoxicillin] Allergy Intermediate Nausea Verified 05/22/21 09:16 acetaminophen [From Vicodin] AdvReac Mild Nausea Verified 05/22/21 09:16 hydrocodone bitartrate * AdvReac Mild Nausea Verified 05/22/21 09:16 [From Vicodin] - Social History Does the pt smoke?: No Smoking Status: Never smoker Does the pt drink ETOH?: Yes Does the pt have substance abuse?: No - Immunizations Immunizations are current?: Yes - POLST Patient has POLST: No PD ED PE NORMAL - Vitals Vital signs reviewed: Yes (tachy and hypertensive ) - General General: Alert and oriented X 3, No acute distress, Well developed/nourished - HEENT HEENT: Atraumatic, PERRL, EOMI - Neck Neck: Supple, no meningeal sign, No bony TTP - Cardiac Cardiac: No murmur, Other (rapid irregular rate) - Respiratory Respiratory: No respiratory distress, Clear bilaterally - Abdomen Abdomen: Soft, Non tender - Back Back: No CVA TTP, No spinal TTP - Derm Derm: Normal color, Warm and dry, No rash - Extremities Extremities: No deformity, No edema - Neuro Neuro: Alert and oriented X 3, ct technician 2-12 intact, No motor deficit, No sensory deficit, Normal speech Eye Opening: Spontaneous Motor: Obeys Commands Verbal: Oriented GCS Score: 15 - Psych Psych: Normal mood, Normal affect Results - Vitals Vitals: Vital Signs - 24 hr 05/22/21 05/22/21 05/22/21 09:11 09:19 11:00 Temperature 36.4 C L 36.8 C Heart Rate 145 H 130 H 108 H Respiratory 18 34 H 30 H Rate Blood Pressure 109/83 H 109/83 H 113/72 O2 Saturation 96 100 94 05/22/21 12:02 Temperature 35.4 C L Heart Rate 87 Respiratory 19 Rate Blood Pressure 106/70 O2 Saturation 95 Oxygen O2 Source Room air - EKG (time done) 0909 Rate: Rate (enter#) (134) Rhythm: Atrial fibrillation QRS: Low voltage Ischemia: Normal ST segments Compare to prior EKG: Changed from prior EKG (SPT 06-24-14 the volatage has decreased) Computer interpretation: Agree with computer - Labs Labs: Laboratory Tests 05/22/21 05/22/21 05/22/21 09:26 09:26 09:26 WBC 12.4 H RBC 3.91 L Hgb 12.0 L Hct 38.4 L MCV 98.2 H MCH 30.7 MCHC 31.3 L RDW 14.7 Plt Count 223 MPV 11.3 Neut # (Auto) 10.8 H Lymph # (Auto) 0.6 L [place] # (Auto) 0.8 Eos # (Auto) 0.0 Baso # (Auto) 0.1 Absolute Nucleated RBC 0.00 Nucleated RBC % 0.0 Sodium 134 L Potassium 4.7 Chloride 97 L Carbon Dioxide 25 Anion Gap 12.0 BUN 34 H Creatinine 2.0 H Estimated GFR (MDRD) 33 L Glucose 150 H Calcium 8.8 Total Bilirubin 1.7 H AST 15 ALT 17 Alkaline Phosphatase 64 Troponin I High Sens 8.8 B-Natriuretic Peptide Total Protein 6.9 Albumin 3.4 Globulin 3.5 Albumin/Globulin Ratio 1.0 Lipase 25 05/22/21 09:26 WBC RBC Hgb Hct MCV MCH MCHC RDW Plt Count MPV Neut # (Auto) Lymph # (Auto) [place] # (Auto) Eos # (Auto) Baso # (Auto) Absolute Nucleated RBC Nucleated RBC % Sodium Potassium Chloride Carbon Dioxide Anion Gap BUN Creatinine Estimated GFR (MDRD) Glucose Calcium Total Bilirubin AST ALT Alkaline Phosphatase Troponin I High Sens B-Natriuretic Peptide 282 H Total Protein Albumin Globulin Albumin/Globulin Ratio Lipase - Rads (name of study) chest Radiology: Prelim report reviewed (Impression: Finding is suggestive of CHF. No gross pneumothorax. No definite focal infiltrate. ), EMP read indepedently, See rad report Procedures - IVC sono (time) 0945 Bedside IVC sono: IVC measures (cm) (1.57), Euvolemia PD MEDICAL DECISION MAKING - ED course Complexity details: considered differential, d/w patient ED course: 76-year-old male with a history of atrial fibrillation has rapid ventricular response and he is not tolerating this well. He had near syncope at home related to rapid rate. He is given diltiazem 20 mg intravenously followed by 25 mg dose is rate is now under 80. Patient feels entirely normal wants to go home. Departure - Departure Disposition: 01 Home, Self Care Clinical Impression: Atrial fibrillation with RVR Condition: Stable Instructions: ED Afib Follow-Up: Marcos Westbrook DO [Primary Care Provider] - Discharge Date/Time: 05/22/21 12:07
--- NOTE | 2021-05-22 10:10 | XRAY Report ---
PROCEDURE: Chest 1 View X-Ray INDICATIONS: chest pain TECHNIQUE: One view of the chest was acquired. COMPARISON: 02/03/2021 FINDINGS: Surgical changes and devices: None. Lungs and pleura: There is pulmonary vascular congestion. Small bilateral pleural effusion are seen w ith blunting of bilateral costophrenic angles. Mild pulmonary edema is also noted. No gross pneumotho rax. Mediastinum: Mediastinal contours appear normal. Heart size is markedly enlarged. Bones and chest wall: No suspicious bony lesions. Overlying soft tissues appear unremarkable. IMPRESSION: Finding is suggestive of CHF. No gross pneumothorax. No definite focal infiltrate. Reviewed by: Dom Peter MD on 05/22/2021 10:09 AM PDT Approved by: Dom Peter MD on 05/22/2021 10:09 AM PDT Station ID: [id number]
[2021-05-22 12:04] VITALS: BP 106/70
== END 2021-05-22 12:07 | disposition home or self-care (01) ==
LOC: EDUNIT# → ED 09:02
DX: I48.91 Unspecified atrial fibrillation (principal); Z79.01 Long term (current) use of anticoagulants; Z20.822 Contact with and (suspected) exposure to COVID-19
CPT/HCPCS: 36415; 71045; 80053; 83690; 83880; 84484; 85025; 93005; 96374; 96376; 99283; 99284; U0004

== ENCOUNTER 2021-05-29 17:29 | Emergency (ER) | payer MEDICARE, OTHER ==
[2021-05-29 18:26] LABS: BASOPHILS # (AUTO) 0.1 10^3/uL (0.0-0.1); BASOPHILS % (AUTO) 0.6 %; EOSINOPHILS % (AUTO) 0.3 %; HCT - HEMATOCRIT 39.2 % (42.0-52.0); HGB - HEMOGLOBIN 12.3 g/dL (14.0-18.0); LYMPHOCYTES # (AUTO) 0.9 10^3/uL (1.5-3.5); LYMPHOCYTES % (AUTO) 7.2 %; MEAN CORPUSCULAR HEMOGLOBIN 30.9 pg (27.0-31.0); MEAN CORPUSCULAR HGB CONC 31.4 g/dL (32.0-36.0); MEAN CORPUSCULAR VOLUME 98.5 fL (80.0-94.0); MEAN PLATELET VOLUME 10.5 fL (7.4-11.4); MONOCYTES # (AUTO) 0.7 10^3/uL (0.0-1.0); MONOCYTES % (AUTO) 5.5 %; NEUTROPHILS # (AUTO) 10.7 10^3/uL (1.5-6.6); NEUTROPHILS % (AUTO) 85.7 %; PLT - PLATELET COUNT 363 10^3/uL (130-450); RED BLOOD COUNT 3.98 10^6/uL (4.70-6.10); RED CELL DISTRIBUTION WIDTH 14.6 % (12.0-15.0); WHITE BLOOD COUNT 12.5 x10^3/uL (4.8-10.8)
[2021-05-29 18:43] LABS: ALBUMIN 3.5 g/dL (3.2-5.5); BILIRUBIN,TOTAL 0.9 mg/dL (0.2-1.0); CALCIUM 9.1 mg/dL (8.5-10.3); CREATININE 2.4 mg/dL (0.6-1.2); POTASSIUM 4.9 mmol/L (3.5-5.0); TOTAL PROTEIN 7.1 g/dL (6.7-8.2)
[2021-05-29] MEDS ORDERED: SODIUM CHLORIDE 0.9% 1,000 ML IV STA (18:47)
--- NOTE | 2021-05-29 19:08 | ED Physician Documentation ---
History of Present Illness - Stated complaint Stated Complaint: PER DR HIGH POTASSIUM - Chief complaint Chief Complaint: General - Additonal information Additional information: 76-year-old male was told to come to the emergency department by his primary care provider for evaluation of hyperkalemia. In screening labs obtained yesterday he was noted to have a potassium of 6.8. Patient was seen in this emergency department last week for syncope and he had labs obtained by his primary in follow-up of that. 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 Patient denies any acute medical complaints he would not be here with the exception of being told to come here by his primary. Denies chest pain or shortness of air. No leg swelling. No recent vomiting diarrhea or abdominal pain. Review of Systems Constitutional: reports: Reviewed and negative Ears: reports: Reviewed and negative Nose: reports: Reviewed and negative Throat: reports: Reviewed and negative Cardiac: reports: Reviewed and negative Respiratory: reports: Reviewed and negative GI: reports: Reviewed and negative : reports: Reviewed and negative Skin: reports: Reviewed and negative PD PAST MEDICAL HISTORY - Past Medical History Past Medical History: Yes Cardiovascular: Hypertension, Atrial fibrillation Respiratory: Asthma, COPD, Sleep apnea, CPAP use Endocrine/Autoimmune: Type 2 diabetes GI: GERD : None HEENT: None Psych: Claustrophobia Musculoskeletal: Osteoarthritis, Gout Derm: None - Past Surgical History Past Surgical History: Yes General: Colonoscopy, EGD HEENT: Cataracts Derm: Other - Present Medications Home Medications: Ambulatory Orders Medication Instructions Recorded Confirmed [place]-3 Fatty Acids [Fish Oil] 300 mg PO DAILY 05/29/13 01/01/21 allopurinoL [Zyloprim] 300 mg PO DAILY 05/29/13 01/01/21 lisinopriL [Lisinopril] 20 mg PO BID 05/29/13 01/01/21 Fluticasone/Salmeterol [Advair 1 each IH DAILY 06/05/20 01/01/21 100-50 Diskus] Rivaroxaban [Xarelto] 15 mg PO DAILY 06/05/20 01/01/21 Metoprolol Succinate 1 tab DAILY 06/06/20 01/01/21 cloNIDine [Catapres] 1 tab DAILY 06/06/20 01/01/21 Atorvastatin [Lipitor] 1 tab DAILY 01/01/21 01/01/21 Cimetidine 200 mg PO DAILY 05/29/21 05/29/21 Furosemide [Lasix] 20 mg DAILY 05/29/21 05/29/21 hydroCHLOROthiazide [Hydrodiuril] 25 mg DAILY 05/29/21 05/29/21 - Allergies Allergies/Adverse Reactions: Allergies Allergy/AdvReac Type Severity Reaction Status Date / Time amoxicillin [Amoxicillin] Allergy Intermediate Nausea Verified 05/29/21 17:46 acetaminophen [From Vicodin] AdvReac Mild Nausea Verified 05/29/21 17:46 hydrocodone bitartrate * AdvReac Mild Nausea Verified 05/29/21 17:46 [From Vicodin] - Social History Does the pt smoke?: No Smoking Status: Never smoker Does the pt drink ETOH?: Yes Does the pt have substance abuse?: No - Immunizations Immunizations are current?: Yes - POLST Patient has POLST: No PD ED PE NORMAL - General General: Alert and oriented X 3, No acute distress - HEENT HEENT: PERRL - Neck Neck: Supple, no meningeal sign - Cardiac Cardiac: RRR, No murmur - Respiratory Respiratory: Clear bilaterally - Abdomen Abdomen: Normal bowel sounds, Soft, Non tender, Non distended - Back Back: No CVA TTP, No spinal TTP Results - Vitals Vitals: Vital Signs - 24 hr 05/29/21 17:42 Temperature 36.4 C L Heart Rate 103 H Respiratory 18 Rate Blood Pressure 126/62 O2 Saturation 94 Oxygen O2 Source Room air - Labs Labs: Laboratory Tests 05/29/21 05/29/21 18:19 18:19 WBC 12.5 H RBC 3.98 L Hgb 12.3 L Hct 39.2 L MCV 98.5 H MCH 30.9 MCHC 31.4 L RDW 14.6 Plt Count 363 MPV 10.5 Neut # (Auto) 10.7 H Lymph # (Auto) 0.9 L [place] # (Auto) 0.7 Eos # (Auto) 0.0 Baso # (Auto) 0.1 Absolute Nucleated RBC 0.00 Nucleated RBC % 0.0 Sodium 140 Potassium 4.9 Chloride 101 Carbon Dioxide 30 Anion Gap 9.0 BUN 42 H Creatinine 2.4 H Estimated GFR (MDRD) 27 L Glucose 101 H Calcium 9.1 Total Bilirubin 0.9 AST 15 ALT 16 Alkaline Phosphatase 74 Total Protein 7.1 Albumin 3.5 Globulin 3.6 Albumin/Globulin Ratio 1.0 Lipase 32 PD MEDICAL DECISION MAKING - ED course Complexity details: reviewed results, re-evaluated patient, considered differential, d/w patient ED course: 76-year-old male presents emergency department for evaluation of reported hyperkalemia drawn on labs yesterday at an outside facility. Reassuringly today his potassium is noted to be 4.9. His EKG is consistent with his history of atrial fibrillation and shows no peaked T waves or QRS widening suggestive of hyperkalemia. We do note a mild increase in his BUN to 42 and his creatinine to 2.4. Patient was repleted with a liter of fluids today in the ER. I have advised close follow-up this week with his primary care doctor to discuss his chronic kidney disease. Emergent return precautions otherwise discussed. Departure - Departure Disposition: 01 Home, Self Care Clinical Impression: Chronic kidney disease Qualifiers: Chronic kidney disease stage: unspecified stage Qualified Code(s): N18.9 - Chronic kidney disease, unspecified Condition: Stable Record reviewed to determine appropriate education?: Yes Comments: Noel you are seen in the emergency department today to have your potassium rechecked which was noted to be elevated on lab draw yesterday. Today your pota ssium is 4.9. This is a normal value. We do note however that you do have a mild increase in your BUN and creatinine. These are markers of your kidney function. We did give you some extra IV fluids in the emergency department to help with this. It is important that you continue close follow-up with your primary care provider for longer-term evaluation of your chronic kidney disease. Return to the emergency department for any fevers, abdominal pain chest pain, worsening shortness of air or syncopal events.
[2021-05-29 20:11] VITALS: BP 131/84
== END 2021-05-29 20:11 | disposition home or self-care (01) ==
LOC: ED 17:29
DX: N18.9 Chronic kidney disease, unspecified (principal); I48.91 Unspecified atrial fibrillation
CPT/HCPCS: 36415; 80053; 83690; 85025; 93005; 99282; 99283

== ENCOUNTER 2021-09-18 09:42 | Outpatient (CLI) | payer MEDICARE, OTHER ==
--- NOTE | 2021-09-18 11:39 | XRAY Report ---
PROCEDURE: Chest 2 View X-Ray INDICATIONS: COUGH TECHNIQUE: 2 views of the chest. COMPARISON: Chest radiographs 05/22/2021 and 02/03/2021. FINDINGS: Surgical changes and devices: None. Lungs and pleura: Small consolidation is seen at the medial left lung base. Mild prominence of the c entral pulmonary vasculature and interstitial markings is seen. No significant pleural effusion. No p neumothorax. Mediastinum: Mediastinal contours are normal. Heart size is enlarged. Mild to moderate aortic ather osclerotic calcifications. Bones and chest wall: No suspicious bony abnormalities. Soft tissues appear unremarkable. IMPRESSION: 1.Small left basilar consolidation may represent pneumonia, aspiration, or atelectasis. 2.Cardiomegaly with chronic mild prominence of the central pulmonary vasculature. Reviewed by: Rocky Tariq MD on 09/18/2021 11:38 AM PST Approved by: Rocky Tariq MD on 09/18/2021 11:38 AM PST Station ID: [id number]
== END 2021-09-18 09:43 | disposition home or self-care (01) ==
LOC: DI.N 09:42
PROVIDERS: ATTEND Family Medicine
DX: R91.8 Other nonspecific abnormal finding of lung field (principal); I50.9 Heart failure, unspecified; J44.9 Chronic obstructive pulmonary disease, unspecified

== ENCOUNTER 2023-03-11 09:59 | Outpatient (CLI) | payer MEDICARE, OTHER ==
--- NOTE | 2023-03-11 11:03 | SLEEP CARE CONSULTATION ---
Information from patient questionnaire entered by Daisy Amaya. I have reviewed and concur with the information entered by Daisy Amaya. This document represents the service I personally performed and the decisions made by me, Radha Andrade ARNP. History of Present Illness Service Date and Time: 03/11/2023 0959 Previous diagnosis: Severe, Obstructive Sleep Apnea-Hypopnea Syndrome AHI: 31.4 (in 2013) Reason for follow up: annual (LAST SEEN 03/2022) Equipment type: CPAP ([facility] 2) Equipment obtained from: [employer] (getting supplies as needed) Mask style: Full face Mask brand: [employer]med Backup mask available: Yes (old mask) Last cushion change: 1 week [facility]: Yes [facility] additional information: MARIANN SINGER was diagnosed to have severe, AHI 31.4, obstructive sleep apnea-hypopnea syndrome and returned today for CPAP therapy annual follow-up. Sleep Study - Results Prior sleep studies: Yes Year and Where: 2013 - [facility] Sleep CPAP Compliance Data - Data Reviewed with Patient Average duration of nightly device use: 8 HRS 24 MINS 26 SEC Compliance rate %: 97.8 (09/10/22-03/08/23; 176/180 days used) Current pressure setting (cmH2O): 12 Average residual AHI: 1.0 Central apnea: 0.1 Obstructive apnea: 0.5 Hypopnea: 0.4 Average large leak: 17 secs Compliance data discussion: He has a travel CPAP that he uses as needed. Subjective Missed days of use due to: reports: other (Camping, could not use machine) Patient concerns: reports: dry mouth, nose, throat (occasionally; uses Biotene as needed, does help). denies: aerophagia, mask discomfort, air blowing in eyes, mask leak noise, condensation in mask/hose, nasal congestion, epistaxis Observed to snore while using device: No Current pressure setting perceived as: comfortable On therapy, patient: reports: sleeping better, awakening more refreshed, being more awake and alert during the day, more rested overall. denies: drowsiness while driving Initial Vaughan Sleepiness Scale score: 1 (in 2013) Current Vaughan Sleepiness Scale score: 5 (03/11/23) Allergies and Home Medications Known drug allergies: Yes (as listed) Drug allergies reviewed: Yes Home medication list reviewed: Yes (Synthroid 75 mg) Allergy and home medication list: Allergies amoxicillin [Amoxicillin] Allergy (Intermediate, Verified 03/10/23 14:42) Nausea Vomiting acetaminophen [From Vicodin] Adverse Reaction (Mild, Verified 03/10/23 14:42) Nausea hydrocodone bitartrate * [From Vicodin] Adverse Reaction (Mild, Verified 3 14:42) Nausea Review of Systems Review of systems same as previous: No (Hypothyroidism; Cardiac Ablation) Physical Exam Vital signs obtained and entered by: DAISY Fernandez MA Blood Pressure: 92/56 (LEFT ARM) Cuff size: regular Heart Rate: 91 O2 Saturation: 96 Height: 5 ft 10 in Weight: 220 lb 6.4 oz Body Mass Index: 31.6 BMI Classification: Obese Impression and Plan 1. Obstructive Sleep Apnea-Hypopnea Syndrome, severe, with good treatment compliance and good apnea control. On CPAP therapy, the patient has better sleep quality and is more rested overall. He states he had a cardiac ablation and his meds have changed. He was recently diagnosed with hypothyroidism and Synthroid was added. Patient has significant improvement of their sleep apnea and is satisfied with current CPAP therapy. Patient denies problems with nasal congestion, epistaxis, skin irritation or aerophagia. Patient's apnea severity and rationale for treatment to reduce apnea, improve sleep quality and reduce cardiovascular and cerebrovascular events was reviewed. I also reviewed the shannon efit of consistent device use of CPAP for hypertension, cardiac disease, arrhythmia and diabetes. 2. Obesity, unspecified. Currently patients BMI is 31.6. Obesity increases the risk of apnea, CPAP pressure requirements and overall health risks especially cardiovascular and diabetes. Thus patient is advised to lose weight. * Continue CPAP pressure at 12 cmH2O * Update supplies * Notify me if snoring with mask or feeling that the pressure is too much or too little * Attempt to lose weight * Call this office if any problems using CPAP * Return for follow up in 1 year, or sooner if concerns arise Counseling Topics: Spare mask, Weight loss health impact Visit Type: In Office Time Spent with Patient (minutes): 20 Provider Statement: I spent 100% of the Face to Face Visit with the patient with greater than 50% spent counseling the patient and coordination of care.
[2023-03-11 11:06] VITALS: BP 92/56; O2SAT 96
== END 2023-03-11 10:00 | disposition home or self-care (01) ==
LOC: SC 09:59
PROVIDERS: ATTEND Nurse Practitioner Family
DX: G47.33 Obstructive sleep apnea (adult) (pediatric) (principal); E66.9 Obesity, unspecified; Z68.31 Body mass index [BMI] 31.0-31.9, adult
CPT/HCPCS: 99213; G0463; 99212

== ENCOUNTER 2023-07-24 22:34 | Outpatient (CLI) | payer MEDICARE, OTHER | END 2023-07-24 23:59 | disposition short-term general hospital (02) | LOC: EMS 22:34 | DX: R06.00 Dyspnea, unspecified (principal); R05.9 Cough, unspecified; R06.2 Wheezing; I10 Essential (primary) hypertension | CPT/HCPCS: A0425; A0427; A0888 ==

== ENCOUNTER 2024-03-15 14:34 | Outpatient (CLI) | payer MEDICARE, OTHER ==
--- NOTE | 2024-03-15 15:13 | Sleep Patient Instructions ---
Sleep Center Visit Summary - Patient Visit Information Reason for Visit: Annual follow-up for PAP therapy - Patient Instructions Additional Instructions: You will continue with CPAP therapy with pressure set at 12 cmH2O. A supply prescription will be updated with your DME supplier. We encourage you to continue to try to lose weight. Please follow up with the sleep care office in 1 year. - Clinic Information Contact: [facility] [address] [place] [address] [email or web address] T: [phone]
--- NOTE | 2024-03-15 15:17 | SLEEP CARE CONSULTATION ---
Information from patient questionnaire entered by Daisy Amaya. I have reviewed and concur with the information entered by Daisy Amaya. This document represents the service I personally performed and the decisions made by me, Radha Andrade ARNP. History of Present Illness Service Date and Time: 03/15/2024 1434 Previous diagnosis: Severe, Obstructive Sleep Apnea-Hypopnea Syndrome AHI: 31.4 (in 2013) Reason for follow up: annual (LAST SEEN 03/2023) Accompanied by: Spouse Equipment type: CPAP (MOSHER DREAM STATION 2) Equipment obtained from: [employer] (getting supplies as needed) Mask style: Full face Backup mask available: Yes Last cushion change: 2 weeks Prior sleep [facility]: Yes [facility] HPI additional information: MARIANN SINGER was diagnosed to have severe, AHI 31.4, obstructive sleep apnea-hypopnea syndrome and returned today for CPAP therapy annual follow-up. Sleep Study - Results Prior sleep [facility]: Yes [facility] Compliance Data - Data Reviewed with Patient Average duration of nightly device use: 8 HRS 39 MINS 11 SECS Compliance rate %: 95.9 (03/13/23-03/11/24; 353/365 days used) Current pressure setting (cmH2O): 12 Average residual AHI: 2.7 Central apnea: 0.3 Obstructive apnea: 2.1 Hypopnea: 0.3 Average large leak: 21 secs Subjective Missed days of use due to: reports: travel, other (in hospital) Patient concerns: reports: mask leak noise, dry mouth, nose, throat (almost nightly; oral venting; use Xylimelts at night). denies: aerophagia, mask discomfort, air blowing in eyes, condensation in mask/hose, nasal congestion, epistaxis Observed to snore while using device: No Current pressure setting perceived as: comfortable On therapy, patient: reports: sleeping better, awakening more refreshed, being more awake and alert during the day, more rested overall. denies: drowsiness while driving Initial [place] Sleepiness Scale score: 1 (in 2013) Current [place] Sleepiness Scale score: 9 (03/15/24) Allergies and Home Medications Known drug allergies: Yes (as listed) Drug allergies reviewed: Yes Home medication list reviewed: Yes (as updated in EMR) Allergy and home medication list: Allergies amoxicillin [Amoxicillin] Allergy (Intermediate, Verified 03/15/24 14:36) Nausea Vomiting acetaminophen [From Vicodin] Adverse Reaction (Mild, Verified 03/15/24 14:36) Nausea hydrocodone bitartrate * [From Vicodin] Adverse Reaction (Mild, Verified 03/15/24 14:36) Nausea Home Medications Medication Instructions Recorded Confirmed Last Taken Type Atorvastatin [Lipitor] See Rx Instructions .ROUTE .[facility] 03/11/23 03/15/24 Unknown History Fluticasone Propion/Salmeterol See Rx Instructions .ROUTE .[facility] 03/11/23 03/15/24 Unknown History [Advair 100-50 Diskus] Levothyroxine Sodium [Synthroid] See Rx Instructions .ROUTE .[facility] 03/11/23 03/15/24 Unknown History Metoprolol Succinate [Toprol Xl] See Rx Instructions .ROUTE .[facility] 03/11/23 03/15/24 Unknown History Rogers-3/Dha/Epa/Fish Oil [Fish Oil See Rx Instructions .ROUTE .[facility] 03/11/23 03/15/24 Unknown History 1,000 mg Softgel] Torsemide See Rx Instructions .ROUTE .[facility] 03/11/23 03/15/24 Unknown History Acetaminophen [Tylenol] See Rx Instructions .ROUTE .[facility] 03/15/24 03/15/24 Unknown History Apixaban [Eliquis] See Rx Instructions .ROUTE .[facility] 03/15/24 03/15/24 Unknown History Colchicine See Rx Instructions .ROUTE .[facility] 03/15/24 03/15/24 Unknown History Famotidine [Acid-Pep] See Rx Instructions .ROUTE .[facility] 03/15/24 03/15/24 Unknown History Loratadine [Allergy Relief] See Rx Instructions .ROUTE .[facility] 03/15/24 03/15/24 Unknown History Tiotropium Parmele [Spiriva See Rx Instructions .ROUTE .[facility] 03/15/24 03/15/24 Unknown History Handihaler] allopurinoL [Zyloprim] See Rx Instructions .ROUTE .[facility] 03/15/24 03/15/24 Unknown History Review of Systems Review of systems same as previous: No (CARDIAC ABLATION for Afib in January) Physical Exam Vital signs obtained and entered by: DAISY Fernandez MA Blood Pressure: 112/61 (RIGHT ARM) Cuff size: regular Heart Rate: 58 O2 Saturation: 92 Height: 5 ft 10 in Weight: 213 lb 12.8 oz Weight change since last visit: 7 lbs loss Body Mass Index: 30.7 BMI Classification: Obese Impression and Plan 1. Obstructive Sleep Apnea-Hypopnea Syndrome, severe, with good treatment compliance and good apnea control. On CPAP therapy, the patient has better sleep quality and is more rested overall. He has significant improvement of his sleep apnea and is satisfied with current CPAP therapy. He does get some dry mouth but states he will sleep with his mouth open and he uses XyliMelts. He has had 2 cardioversions and a heart ablation for his A-fib. He thinks he is doing well at this time. Patient's apnea severity and rationale for treatment to reduce apnea, improve sleep quality and reduce cardiovascular and cerebrovascular events was reviewed. I also reviewed the benefit of consistent device use of CPAP for hypertension, cardiac disease, arrhythmia, diabetes. 2. Obesity, unspecified. Currently patients BMI is 30.7. Obesity increases the risk of apnea, CPAP pressure requirements and overall health risks especially cardiovascular and diabetes. Thus patient is advised to continue to try to lose weight. * Continue CPAP pressure at 12 cmH2O * Update supply prescription * Notify me if snoring with mask or feeling that the pressure is too much or too little * Attempt to lose weight * Call this office if any problems using CPAP * Return for follow up in 12 months, or sooner if concerns arise Counseling Topics: Spare mask, Weight loss health impact Prescriptions: Device supplies Follow up with Sleep Care in: 1 year Visit Type: In Office Time Spent with Patient (minutes): 21 Provider Statement: I spent 100% of the Face to Face Visit with the patient with greater than 50% spent counseling the patient and coordination of care.
[2024-03-15 15:20] VITALS: BP 112/61; O2SAT 92
== END 2024-03-15 14:35 | disposition home or self-care (01) ==
LOC: SC 14:34
PROVIDERS: ATTEND Nurse Practitioner Family
DX: G47.33 Obstructive sleep apnea (adult) (pediatric) (principal); E66.9 Obesity, unspecified; Z68.30 Body mass index [BMI] 30.0-30.9, adult
CPT/HCPCS: 99213; G0463; 99212

== ENCOUNTER 2024-04-09 20:47 | Emergency (ER) | payer MEDICARE, OTHER ==
[2024-04-09 21:00] VITALS: BP 132/74; O2SAT 93
[2024-04-09] MEDS: LIDOCAINE 1%-EPI 1:100000 20 ML MDV SUBQ STA (21:42)
--- NOTE | 2024-04-09 21:50 | ED Physician Documentation ---
History of Present Illness - Stated complaint Stated Complaint: FALL/L LEG LAC - Chief complaint Chief Complaint: Laceration - Additonal information Additional information: Patient is a 79-year-old male presenting to the emergency department with abrasion to the left leg and significant bleeding after trying to get into a motor home slipping on a step and bracing his anterior tibia of the left leg. He denies any numbness or tingling in distal extremity. Persistent bleeding on arrival. Patient notes he did not hit his head did not lose consciousness or fall to the ground after this occurred. Patient notes no significant pain to the bueno. No significant contamination. Patient is up-to-date on tetanus as similar episode occurred last year. PD PAST MEDICAL HISTORY - Past Medical History Cardiovascular: Hypertension, Atrial fibrillation Respiratory: Asthma, COPD, Sleep apnea, CPAP use Endocrine/Autoimmune: Type 2 diabetes GI: GERD : None HEENT: None Psych: Claustrophobia Musculoskeletal: Osteoarthritis, Gout Derm: None - Past Surgical History Past Surgical History: Yes General: Colonoscopy, EGD HEENT: Cataracts Derm: Other - Present Medications Home Medications: Ambulatory Orders Medication Instructions Recorded Confirmed Atorvastatin [Lipitor] See Rx Instructions .ROUTE .[facility] 03/11/23 03/15/24 Fluticasone Propion/Salmeterol See Rx Instructions .ROUTE .[facility] 03/11/23 03/15/24 [Advair 100-50 Diskus] Levothyroxine Sodium [Synthroid] See Rx Instructions .ROUTE .[facility] 03/11/23 03/15/24 Metoprolol Succinate [Toprol Xl] See Rx Instructions .ROUTE .[facility] 03/11/23 03/15/24 Hess[place]-3/Dha/Epa/Fish Oil [Fish Oil See Rx Instructions .ROUTE .[facility] 03/11/23 03/15/24 1,000 mg Softgel] Torsemide See Rx Instructions .ROUTE .[facility] 03/11/23 03/15/24 Acetaminophen [Tylenol] See Rx Instructions .ROUTE .[facility] 03/15/24 03/15/24 Apixaban [Eliquis] See Rx Instructions .ROUTE .[facility] 03/15/24 03/15/24 Colchicine See Rx Instructions .ROUTE .[facility] 03/15/24 03/15/24 Famotidine [Acid-Pep] See Rx Instructions .ROUTE .[facility] 03/15/24 03/15/24 Loratadine [Allergy Relief] See Rx Instructions .ROUTE .[facility] 03/15/24 03/15/24 Tiotropium [place] [Spiriva See Rx Instructions .ROUTE .[facility] 03/15/24 03/15/24 Handihaler] allopurinoL [Zyloprim] See Rx Instructions .ROUTE .[facility] 03/15/24 03/15/24 cephALEXin [Keflex] 500 mg PO TID #15 cap 04/09/24 - Allergies Allergies/Adverse Reactions: Allergies Allergy/AdvReac Type Severity Reaction Status Date / Time amoxicillin [Amoxicillin] Allergy Intermediate Nausea Verified 04/11/24 06:47 acetaminophen [From Vicodin] AdvReac Mild Nausea Verified 04/11/24 06:47 hydrocodone bitartrate * AdvReac Mild Nausea Verified 04/11/24 06:47 [From Vicodin] - Social History Does the pt smoke?: No Smoking Status: Never smoker Does the pt drink ETOH?: Yes Does the pt have substance abuse?: No - Immunizations Immunizations are current?: Yes - POLST Patient has POLST: No PD ED PE NORMAL - Vitals Vital signs reviewed: Yes - General General: Alert and oriented X 3 - HEENT HEENT: Atraumatic, PERRL, EOMI, Other (No signs of trauma to the head noted on examination.) - Neck Neck: Supple, no meningeal sign - Cardiac Cardiac: RRR, No murmur, No gallop, No rub - Respiratory Respiratory: No respiratory distress, Clear bilaterally - Abdomen Abdomen: Normal bowel sounds, Soft, Non tender, Non distended, No organomegaly - Derm Derm: Normal color, Warm and dry, No rash, Other (Laceration noted to anterior tibia approximately 5 cm in size. Active bleeding noted. Wound poorly approximated due to abrasion. No signs of contamination. Vascular appears intact.) - Extremities Extremities: No deformity, No edema, Other (Strength intact in distal extremities digits 1 through 5 full range of motion good capillary refill DP and PT pulses 2+ sensation intact distally.) - Neuro Neuro: Alert and oriented X 3 Eye Opening: Spontaneous Motor: Obeys Commands Verbal: Oriented GCS Score: 15 Results - Vitals Vitals: Oxygen O2 Source Room air PD Medical Decision Making - ED course ED course: Patient presents after abrasion to left leg when trying to get up into his motor home. He notes he slipped the step he did not injure anything else he did not fall to the ground he suffered an abrasion to his left leg tried to close it with Steri-Strips at home but given significant wound approximately 15 cm in size she came straight to the emergency department. Wound actively bleeding on examination patient has good sensation and range of motion and warmth to touch to lower leg. Active bleeding noted around lower portion of wound. Multiple Steri-Strips were applied to upper wound well lower wound was wrapped and silver nitrate applied. Patient tolerated this well. Lidocaine with epinephrine was also injected into the wound where it is actively bleeding. This was able to slow the bleeding down and Surgicel was applied then a tight Kashif wrap was applied over the wound to help with bleeding control. An ice pack was placed and no persistent bleeding appears to be occurring. Wound re-evaluated by dr. Dennis agudelo in the ED. Departure - Departure Disposition: 01 Home, Self Care Clinical Impression: Abrasion, left lower leg, initial encounter, Anticoagulant long-term use, Bleeding from wound Condition: Good Instructions: ED Abrasion, ED Abrasion Ch Prescriptions: cephALEXin [Keflex] 500 mg PO TID #15 cap Comments: You were seen here in the emergency department for your symptoms of left leg bleeding. Keep leg elevated at home and started you on oral antibiotics given mechanism of injury and significant wound here in emergency department. We we will have you follow-up with your PCP in 1 week for wound recheck. If you have persistent bleeding when you return home or in the morning that you cannot control with compression which is wrapping Kashif wrap around it elevating it placing ice on it then you can return to the emergency department. Watch for any redness swelling warmth fevers discharge from the wound. You have multiple Steri-Strips these are tape that can easily be washed off please wait until wound has healed to have the Steri-Strips removed. This can be done at your follow-up PCP appointment. Forms: PCP List Discharge Date/Time: 04/10/24 00:02
[2024-04-09] MEDS: SILVER NITRATE APPLICATOR TOP STA (22:12)
[2024-04-09] MEDS: cephALEXin 250 MG CAPSULE PO STA (23:00)
--- NOTE | 2024-04-10 06:22 | ED Physician Documentation ---
ED Addendum - Addendum Addendum: 04/10/24 06:20 The patient had had an abrasion of the leg that had persistent bleeding from superficial vessel. The bleeding had apparently stopped with several interventions. I was then charged with rechecking the patient to ensure the bleeding remains stopped after change of shift. Reevaluation after 20 or 30 minutes and still no bleeding through the gauze or wrap. The Kashif wrap did seem a bit tight and I was concerned for edema distally so I loosened it a bit so there was not as much restriction. No new blood was noted. The patient is discharged. This disposition: The patient discharged home in stable condition Diagnosis: 1. Lower leg abrasion 2. Anticoagulation long-term use 3. Persistent wound bleeding
== END 2024-04-10 00:02 | disposition home or self-care (01) ==
LOC: ED 20:47
DX: S80.812A Abrasion, left lower leg, initial encounter (principal); W01.0XXA Fall on same level from slipping, tripping and stumbling without subsequent striking against object, initial encounter; Y93.89 Activity, other specified; Y92.099 Unspecified place in other non-institutional residence as the place of occurrence of the external cause; I48.91 Unspecified atrial fibrillation; Z79.01 Long term (current) use of anticoagulants
CPT/HCPCS: 96372; 99283; A9270

== ENCOUNTER 2024-04-11 06:38 | Emergency (ER) | payer MEDICARE, OTHER ==
--- NOTE | 2024-04-11 06:58 | ED Physician Documentation ---
PD HPI LOWER EXT INJURY - Stated complaint Stated Complaint: LT ARCHER WOUND - Chief complaint Chief Complaint: Laceration - History obtained from History obtained from: Patient - Additional information Additional information: Last TDAP 01/01/21 He cut his left leg on a sharp piece of metal in his RV 2 days ago. He was seen here and Steri-Stripped. But he is still having bleeding from 1 area of the wo und. PD PAST MEDICAL HISTORY - Past Medical History Past Medical History: Yes Cardiovascular: Hypertension, Atrial fibrillation Respiratory: Asthma, COPD, Sleep apnea, CPAP use Endocrine/Autoimmune: Type 2 diabetes GI: GERD : None HEENT: None Psych: Claustrophobia Musculoskeletal: Osteoarthritis, Gout Derm: None - Past Surgical History Past Surgical History: Yes General: Colonoscopy, EGD HEENT: Cataracts Derm: Other - Present Medications Home Medications: Ambulatory Orders Medication Instructions Recorded Confirmed Atorvastatin [Lipitor] See Rx Instructions .ROUTE .[facility] 03/11/23 03/15/24 Fluticasone Propion/Salmeterol See Rx Instructions [facility] 03/11/23 03/15/24 [Advair 100-50 Diskus] Levothyroxine Sodium [Synthroid] See Rx Instructions .ROUTE .[facility] 03/11/23 03/15/24 Metoprolol Succinate [Toprol Xl] See Rx Instructions .ROUTE .[facility] 03/11/23 03/15/24 Maupin-3/Dha/Epa/Fish Oil [Fish Oil See Rx Instructions .ROUTE .[facility] 03/11/23 03/15/24 1,000 mg Softgel] Torsemide See Rx Instructions .ROUTE .[facility] 03/11/23 03/15/24 Acetaminophen [Tylenol] See Rx Instructions .ROUTE .[facility] 03/15/24 03/15/24 Apixaban [Eliquis] See Rx Instructions .ROUTE .[facility] 03/15/24 03/15/24 Colchicine See Rx Instructions .ROUTE .[facility] 03/15/24 03/15/24 Famotidine [Acid-Pep] See Rx Instructions .ROUTE .[facility] 03/15/24 03/15/24 Loratadine [Allergy Relief] See Rx Instructions .ROUTE .[facility] 03/15/24 03/15/24 Tiotropium [place] [Spiriva See Rx Instructions .ROUTE .[facility] 03/15/24 03/15/24 Handihaler] allopurinoL [Zyloprim] See Rx Instructions .ROUTE .[facility] 03/15/24 03/15/24 cephALEXin [Keflex] 500 mg PO TID #15 cap 04/09/24 - Allergies Allergies/Adverse Reactions: Allergies Allergy/AdvReac Type Severity Reaction Status Date / Time amoxicillin [Amoxicillin] Allergy Intermediate Nausea Verified 04/11/24 06:47 acetaminophen [From Vicodin] AdvReac Mild Nausea Verified 04/11/24 06:47 hydrocodone bitartrate * AdvReac Mild Nausea Verified 04/11/24 06:47 [From Vicodin] - Social History Does the pt smoke?: No Smoking Status: Never smoker Does the pt drink ETOH?: Yes Does the pt have substance abuse?: No - Immunizations Immunizations are current?: Yes - POLST Patient has POLST: No PD ED PE NORMAL - Vitals Vital signs reviewed: Yes - General General: Alert and oriented X 3, No acute distress - Extremities Extremities: Other (Extensive lacerations with Steri-Strips in place over the left lower leg anteriorly with a spot of bleeding.) Results - Vitals Vitals: Vital Signs - 24 hr 04/11/24 06:47 Temperature 35.9 C L Heart Rate 62 Respiratory 18 Rate Blood Pressure 141/74 H O2 Saturation 96 Oxygen O2 Source Room air Procedures - Laceration (location) LLE Length in cm: 15 Wound type: Stellate, Irregular, Superficial Anesthesia: Lidocaine 1% with epi Skin layer closure: Nylon, Interrupted, Size #-0 - enter number (4-0), Sutures - enter # (4) Other: Patient tolerated well, Tetanus UTD PD Medical Decision Making - ED course ED course: 79-year-old gentleman with persistent bleeding large laceration on the left lower extremity. The bleeding part was closed with 4-0 sutures. He is already on Keflex. Recommended referral to wound care. Departure - Departure Disposition: 01 Home, Self Care Clinical Impression: Bleeding from wound Condition: Good Record reviewed to determine appropriate education?: Yes Instructions: ED Laceration All Comments: Keep the current dressing on for probably 24 hours. After which you can do wound care as you have been which was excellent. Given the complexity of the laceration, gaping nature and size, continue taking the Keflex but I would recommend you call Dr. Westbrook's office during business hours with consideration for follow-up and wound care referral. Regardless of that process, the 4 sutures I put in should come out in about 2 weeks. Given that we closed and already few day old wound, despite being on antibiotics, your risk of infection is increased, return if you develop redness, swelling, drainage, increased pain, or fever. Forms: PCP List
[2024-04-11] MEDS ORDERED: LIDOCAINE 1%-EPI 1:100000 20 ML MDV SUBQ STA (07:04)
[2024-04-11 07:35] VITALS: BP 138/84; O2SAT 98
== END 2024-04-11 07:31 | disposition home or self-care (01) ==
LOC: ED 06:38
DX: S81.812A Laceration without foreign body, left lower leg, initial encounter (principal); W45.8XXA Other foreign body or object entering through skin, initial encounter; Y92.89 Other specified places as the place of occurrence of the external cause; I10 Essential (primary) hypertension; I48.91 Unspecified atrial fibrillation; J44.9 Chronic obstructive pulmonary disease, unspecified; E11.9 Type 2 diabetes mellitus without complications; Z79.899 Other long term (current) drug therapy; Z79.51 Long term (current) use of inhaled steroids; Z79.01 Long term (current) use of anticoagulants
CPT/HCPCS: 12005; 99283